=== PATIENT | male | born 1950 ===

== ENCOUNTER 2023-02-27 09:51 | Outpatient (REF) | payer OTHER, SELFPAY ==
--- NOTE | ~2023-02-27 | US_ITS ---
EXAMINATION: US RETROPERITONEAL COMPLETE (RENAL) CLINICAL INFORMATION: Follow up renal cyst. COMPARISON: None available. TECHNIQUE: Real-time imaging of the kidneys and bladder. FINDINGS: RIGHT KIDNEY: 14.2 x 5.5 x 7.9 cm (SAG x AP x TRV). The kidney is normal in size, contour, and echogenicity. Renal cortical thickness is normal. No renal calculi or hydronephrosis. Multiple benign Bosniak class I and Bosniak class II renal cysts are noted, the largest measuring 4.5 cm which require no additional imaging or follow-up. The Bosniak class II cyst with a single thin septation measures 3.2 cm. No solid renal masses are seen. LEFT KIDNEY: 11.1 x 4.9 x 5.6 cm (SAG x AP x TRV). The kidney is normal in size, contour, and echogenicity. Renal cortical thickness is normal. No renal calculi or hydronephrosis. A benign mid to upper 2.7 cm Bosniak class I renal cyst is noted which requires no additional imaging or follow up. No solid renal masses are seen. BLADDER: Well distended and normal. Bilateral ureteral jets are demonstrated. Prevoid bladder volume is 396 mL. Postvoid bladder volume is 45 mL. ADDITIONAL FINDINGS: The prostate is mildly enlarged at 55 mL. US/US retroperitoneal comp IMPRESSION: 1. Bilateral benign Bosniak class I and Bosniak class II renal cysts which require no additional imaging or follow up. 2. Mild BPH at 55 mL with 45 mL postvoid residual.
== END 2023-02-27 09:52 | disposition home or self-care (01) ==
LOC: HO.UMASIMG 09:51
PROVIDERS: PCP Internal Medicine; Visit Provider Internal Medicine
DX: N28.89 Other specified disorders of kidney and ureter (principal)
CPT/HCPCS: 76770; 76775

== ENCOUNTER 2023-10-08 15:07 | Outpatient (AMB) | payer OTHER, SELFPAY ==
--- NOTE | 2023-10-08 15:11 | A.OFFVIS_ITS ---
Vital Signs 10/08/23 15:19 Height 5 ft 3.5 in Weight 163 lb BMI 28.4 BP 108/70 Blood Pressure Location Rt brachial Position Sitting Respiration 16 Pulse 61 Pulse Source Pulse Oximeter Pulse Oximetry (%) 97 Oxygen Delivery Method Room Air Intake Visit Reasons: ENP:UnrefreshSleep/daytime somnolence - Conf Intake Note: Pt presents to the office for new pt consultation for daytime sleepiness. Application Dba Required: No Allergies No Known Allergies Allergy (Verified 10/08/23 15:12) Medication List - Last Reconciled 10/08/23 by Hoda Coffey MD fluticasone propionate 50 mcg/actuation (Flonase Allergy Relief) 2 sprays intranasal DAILY HPI Comments Details: 73y/o comes for sleep evaluation . Main complaints-loud snoring , frequent arousals Sleep questionnaire- Difficulty falling asleep-no Difficulty staying asleep-yes Number of [id number] Snoring-yes Witnessed apneas-yes Gasping arousals-yes Nocturia-yes GERD-no Vivid dreams-yes- rare Acting out dreams -no Abnormal behavior in sleep-no ABnormal movements in sleep-no Morning headaches-rare Excessive daytime sleepiness-no Daytime naps- /no restless legs- no Hallucinations-no sleep paralysis- /no Drop attacks- no Sleep Hygiene- Sleep time- 12 am Wake time - 8am coffee/stimulant use-none Phone Electronics use-laptop Exercise- yes Bedroom comfort- good [facility] Medical History (Updated 10/08/23 @ 15:57 by Hoda Coffey MD) Witnessed apneic spells Snoring Family History (Updated 10/08/23 @ 15:23 by Nichole Jane CMA) Father No problems noted. Mother No problems noted. Social History (Updated 10/08/23 @ 15:22 by Nichole Jane CMA) Household Members: Spouse Housing: House Alcohol intake: never Patient Tobacco Use Status: Former Tobacco user Use of substances other than those prescribed or required for medical reasons: No Physical Exam Vital Signs: Last Vital Signs Pulse 61 10/08/23 15:19 Resp 16 10/08/23 15:19 BP 108/70 10/08/23 15:19 Pulse Ox 97 10/08/23 15:19 Oxygen Delivery Method Room Air 10/08/23 15:19 BMI result Body Mass Index 28.4 Const Other: nasal - passages left narrower General: cooperative, healthy appearing and comfortable Nutritional Appearance: average body habitus Orientation/consciousness: patient oriented x3 HEENT Head: Yes normal to inspection Eyes Pupils: Equal, round and reactive pupils present Neuro General: patient oriented x3, tone normal and moves all extremities Cranial nerves: Yes Facial sensation intact/muscles of mastication intact, Yes Equal, round and reactive pupils present, Yes Bilaterally intact EOM present, Yes Nystagmus not present, Yes Normal facial strength present and Yes Midline tongue present Cognition (Neuro): normal cognition Motor exam (neuro): 5/5 motor strength present throughout and Normal motor muscle tone present throughout Assessment & Plan Assessment & Plan (1) Snoring: Code(s): R06.83 - Snoring Category: Medical (2) Witnessed apneic spells: Code(s): R06.81 - Apnea, not elsewhere classified Category: Medical Plan Home SLeep test to r/o sleep apnea. Orders: Orders RT home sleep study Today R06.81 - Apnea, not elsewhere classified, R06.83 - Snoring Medications: New fluticasone propionate 50 mcg/actuation (Flonase Allergy Relief) administer into each nostril 2 sprays intranasal DAILY 16 grams 6RF Coding Level of Care Code New Pt Level 3 ([id number]) Diagnoses Snoring R06.83 Witnessed apneic spells R06.81 [place] Sleepiness Scale Questions Sitting and reading: would never doze Watching TV: high chance of dozing Sitting inactive in a theater, movie etc.: high chance of dozing As a passenger in a car for an hour without break: moderate chance of dozing Lying down in the afternoon when circumstances permit: high chance of dozing Sitting and talking to someone: would never doze Sitting quietly after lunch without alcohol: would never doze In a car, while stopped for a few minutes in the traffic: would never doze ESS < 10: normal, ESS > 12: pathologic: 11
[2023-10-08 15:19] VITALS: BP 108/70; PULSE 61; RESP 16; O2SAT 97; BMI 28.4
== END 2023-10-08 16:17 | disposition home or self-care (01) ==
PROVIDERS: PCP Internal Medicine; Visit Provider Psychiatry & Neurology Neurology
DX: R06.83 Snoring (principal); R06.81 Apnea, not elsewhere classified
CPT/HCPCS: 99203

== ENCOUNTER → 2023-10-08 15:07 | Outpatient (BNVA) | payer OTHER, SELFPAY | PROVIDERS: PCP Internal Medicine; Visit Provider Psychiatry & Neurology Neurology ==

== ENCOUNTER → 2023-11-25 11:03 | Outpatient (REF) | payer OTHER, SELFPAY | LOC: HO.SL 11:03 | PROVIDERS: PCP Internal Medicine; Visit Provider Psychiatry & Neurology Neurology | DX: R06.83 Snoring (principal); R06.81 Apnea, not elsewhere classified; G47.10 Hypersomnia, unspecified | CPT/HCPCS: 95806 ==

== ENCOUNTER → 2023-11-25 11:41 | Outpatient (BNV) | payer OTHER, SELFPAY | PROVIDERS: PCP Internal Medicine; Visit Provider Psychiatry & Neurology Neurology | DX: R06.83 Snoring (principal); G47.10 Hypersomnia, unspecified | CPT/HCPCS: 95806 ==